=== PATIENT | male | born 1970 | race Caucasian/White ===

== ENCOUNTER 2019-05-31 06:14 | Day surgery (SDC) | payer OTHER ==
[2019-05-28 10:26] VITALS: BMI 26.4
[~2019-05-31 06:14] MED LIST: BUPIVACAINE HCL/PF 2.5 MG/ML - 30 ML VIAL IJ ONE
[2019-05-31] MEDS ORDERED: EPINEPHrine 1:1,000 1 MG/1 ML - 30ML VIAL (INJECTION) ONE (07:20)
[2019-05-31] MEDS ORDERED: BUPIVACAINE HCL/PF 2.5 MG/ML - 30 ML VIAL IJ ONE ×2 (07:20→09:20)
[2019-05-31] MEDS ORDERED: DEXAMETHASONE SOD PHOSPHATE 4 MG/1 ML VIAL ONE (08:41)
[2019-05-31] MEDS ORDERED: MIDAZOLAM HCL 2 MG/2 ML SINGLE DOSE VIAL ONE (08:41)
[2019-05-31] MEDS ORDERED: ONDANSETRON 4 MG/2 ML VIAL ONE (08:41)
[2019-05-31] MEDS ORDERED: PROPOFOL 20 ML ONE (08:51)
[2019-05-31] MEDS ORDERED: SUCCINYLCHOLINE CHLORIDE 200 MG/10 ML SYRINGE ONE (08:52)
[2019-05-31] MEDS ORDERED: ceFAZolin SODIUM 1 GM VIAL ONE (08:57)
[2019-05-31] MEDS ORDERED: KETOROLAC TROMETHAMINE 30 MG/1 ML VIAL ONE (09:05)
[2019-05-31 10:41] VITALS: TEMP 97.6
[2019-05-31] MEDS ORDERED: oxyCODONE HCL 5 MG TABLET PO PRN ×2 (10:51)
[2019-05-31] MEDS ORDERED: ONDANSETRON 4 MG/2 ML VIAL IVPUSH PRN (10:51)
[2019-05-31] MEDS ORDERED: LACTATED RINGERS SOLUTION 1,000 ML IV SCH (11:00)
--- NOTE | 2019-05-31 11:04 | OP ---
DATE OF OPERATION: 05/31/2019 Done at [facility] SURGEON: Jani Alford MD CLASSIFIED AD CLERK: AAMIR Titus PREOPERATIVE DIAGNOSES: 1. Left knee medial meniscal tear. 2. Left knee synovitis. POSTOPERATIVE DIAGNOSES: 1. Left knee medial meniscal tear. 2. Left knee synovitis. PROCEDURE: 1. Left knee arthroscopy with partial meniscectomy medial meniscus, CPT code 34577. 2. Left knee arthroscopy with synovectomy, CPT code 35488. FINDINGS: 1. Medial meniscal tear, central body to posterior horn inner 1/3 with superior leaf intact. 2. No evidence of lateral meniscal tear. 3. Synovitis patellofemoral medial and lateral notch area. 4. Minimal grade 2 changes anterior medial femoral condyle. 5. ACL and PCL intact. 6. No evidence of line. 7. Minimal grade 1 changes anterior patellofemoral trochlea on the patellofemoral joint. PROCEDURE: Informed consent was obtained. The patient came to the operating room, where the lower extremity was prepped and draped in a sterile fashion. A tourniquet was placed on the upper thigh, but not inflated. Using standard arthroscopic technique, a lateral incision and portal was made to allow for introduction of the camera into the suprapatellar bursa. This was then taken to the medial joint line, where under direct visualization, a medial incision and portal was made. Excessive synovium noted in the medial, lateral and patellofemoral and notch area was removed by an upbiter, shaver and Bovie cautery. This was found to bring in inflammatory tissue into the joint surface, a source of pain and dysfunction. Probing of the medial and lateral meniscus found tears, as described in the findings. These were removed with the upbiter and shaver and taken back to a stable rim. Grade 2 to 3 degenerative changes were treated with a chondroplasty, removing all flaking surfaces with low-setting Bovie along the periphery to prevent further flaking. Grade 4 changes, as noted, were treated with an abrasoplasty, creating a bleeding surface at the bone/cartilage interface. Aggressive debridement with shaver/cristian created bleeding surface. Micro fracture also done when indicated in findings. All areas of the knee were once again reexamined. The knee was then drained and a single suture was placed in all portals. A sterile dressing was placed and the patient was transferred to the recovery room without complication. The PA listed above was present and assisted at surgery. Their presence was absolutely medically necessary for the completion of the procedure. They helped hold the arthroscopy, pass instruments (and implants when indicated) and the procedure could not have been completed without their assistance. JANI ALFORD M.D. [id number]
[2019-05-31 11:11] VITALS: BP 138/90; PULSE 59
--- NOTE | 2019-06-05 14:59 | PATH ---
Surgical Pathology Report Patient Name: HAYDEE MUSE Med. Rec. #: [id number] /Age/Gender: 1970 (Age: 48) / M Account: [id number] Location: [facility] Taken: 05/31/2019 Received: 05/31/2019 Reported: 06/05/2019 Physicians: Jani Aldrich M.D. Specimen(s) Received LEFT KNEE SHAVINGS Clinical History Internal derangement left knee Final Diagnosis KNEE, LEFT, ARTHROSCOPIC SHAVINGS: FIBROSYNOVIAL TISSUE AND CARTILAGE. Electronically Signed Corazon Evans M.D. Gross Description Received in formalin labeled "left knee shavings," are multiple fragments of white soft tissue measuring 2.0 x 2.0 x 0.3 cm in aggregate. [employer] portions are submitted in one cassette. FARSHAD/06/03/2019 darius/06/03/2019
== END 2019-05-31 11:20 | disposition home or self-care (01) ==
LOC: FASU 06:14
PROVIDERS: ATTEND Orthopaedic Surgery
PROC: 0SBD4ZZ Excision of Left Knee Joint, Percutaneous Endoscopic Approach (ICD-10-PCS; 2019-05-31)
PROC: 0SBD4ZZ Excision of Left Knee Joint, Percutaneous Endoscopic Approach (ICD-10-PCS; principal; 2019-05-31 08:00)
DX: S83.242A Other tear of medial meniscus, current injury, left knee, initial encounter (principal); M65.862 Other synovitis and tenosynovitis, left lower leg
CPT/HCPCS: 88304-TC; 94760